=== PATIENT | male | born 1965 | race Two or more races ===

== ENCOUNTER 2021-02-04 12:17 | Emergency (ER) | payer OTHER ==
[~2021-02-04] VITALS: Ht 180.3 cm; Wt 85.3 kg
[2021-02-04] MEDS ORDERED: NORFLEX100MG PO (17:26)
== END 2021-02-04 17:45 | disposition home or self-care (01) ==
LOC: ER 12:17
DX: M54.50 Low back pain, unspecified (principal)

== ENCOUNTER 2021-12-04 14:46 | Emergency (ER) | payer OTHER ==
[~2021-12-04] VITALS: Ht 180.3 cm; Wt 88.0 kg
[~2021-12-04 14:46] MED LIST: NORFLEX100MG PO
== END 2021-12-04 17:02 | disposition home or self-care (01) ==
LOC: ER 14:46
DX: R20.0 Anesthesia of skin (principal)